=== PATIENT | male | born 1980 | race Caucasian/White ===

== ENCOUNTER 2017-07-16 12:37 | Emergency (ER) | payer SELFPAY ==
--- NOTE | 2017-07-16 13:02 | EDPHYS ---
Physician Documentation [facility] Name: Rufino Pineda Age: 36 yrs Sex: Male : 1980 Arrival Date: 07/16/2017 Time: 12:41 Bed 9 Private MD: ED Physician Marito Álvarez HPI: 07/16 12:57 This 36 yrs old Male presents to ER via Ambulatory with complaints of jr8 Toothache. 12:57 The patient presents with pain, redness, swelling. The problem is located in the right jr8 jaw. Onset: The symptoms/episode began/occurred acutely, yesterday. Duration: The symptoms are continuous. Modifying factors: The symptoms are alleviated by nothing, the symptoms are aggravated by air, chewing, hot fluids. Associated signs and symptoms: The patient has no apparent associated signs or symptoms. Severity of symptoms: At their worst the symptoms were moderate, in the emergency department the symptoms are unchanged. The patient has not experienced similar symptoms in the past. The patient has not recently seen a physician. Historical: - Allergies: 12:45 No Known Allergies; hb - Home Meds: 12:45 None [Active]; hb - PMHx: 12:45 None; hb - PSHx: 12:45 None; hb - Immunization history:: Adult Immunizations up to date. - Social history:: Smoking status: Patient/guardian denies using tobacco. ROS: 12:57 Eyes: Negative for injury, pain, redness, and discharge, Neck: Negative for injury, jr8 pain, and swelling, Cardiovascular: Negative for chest pain, palpitations, and edema, Respiratory: Negative for shortness of breath, cough, wheezing, and pleuritic chest pain, Abdomen/GI: Negative for abdominal pain, nausea, vomiting, diarrhea, and constipation, Back: Negative for injury and pain, MS/Extremity: Negative for injury and deformity, Skin: Negative for injury, rash, and discoloration, Neuro: Negative for headache, weakness, numbness, tingling, and seizure. 12:57 ENT: Positive for dental pain, Gum pain Exam: 12:57 Head/Face: Normocephalic, atraumatic. Eyes: Pupils equal round and reactive to light, jr8 extra-ocular motions intact. Lids and lashes normal. Conjunctiva and sclera are non-icteric and not injected. Cornea within normal limits. Periorbital areas with no swelling, redness, or edema. Neck: Trachea midline, no thyromegaly or masses palpated, and no cervical lymphadenopathy. Supple, full range of motion without nuchal rigidity, or vertebral point tenderness. No Meningismus. Cardiovascular: Regular rate and rhythm with a normal S1 and S2. No gallops, murmurs, or rubs. Normal PMI, no JVD. No pulse deficits. Respiratory: Lungs have equal breath sounds bilaterally, clear to auscultation and percussion. No rales, rhonchi or wheezes noted. No increased work of breathing, no retractions or nasal flaring. Skin: Warm, dry with normal turgor. Normal color with no rashes, no lesions, and no evidence of cellulitis. MS/ Extremity: Pulses equal, no cyanosis. Neurovascular intact. Full, normal range of motion. Neuro: Awake and alert, GCS 15, oriented to person, place, time, and situation. Cranial nerves II-XII grossly intact. Motor strength 5/5 in all extremities. Sensory grossly intact. Cerebellar exam normal. Normal gait. 12:57 ENT: External ear(s): are unremarkable, Ear canal(s): are normal, clear, TM's: are normal, no evidence of bulging, no dullness, no erythema, no fluid levels, no hemotympanum, no rupture, normal bony landmarks, normal mobility, Nose: External nose: no obvious acute abnormality, Nasal septum: is midline, Nasal mucosa: moist, Turbinates: are normal, Mouth: Lips: moist, Oral mucosa: pink and intact, moist, Gums: pink, Tongue: is moist, Posterior pharynx: Airway: patent, Uvula: midline, non-edematous, no erythema, swelling, is not appreciated, erythema, is not appreciated, Dental exam: dental caries, that is mild, specifically in the lower right second bicuspid (#29) and lower right first molar (#30), gum swelling, that is mild, specifically in the lower right second bicuspid (#29) and lower right first molar (#30), pain, that is moderate, specifically in the lower right second bicuspid (#29) and lower right first molar (#30). Vital Signs: 12:45 BP 141 / 96; Pulse 54; Resp 16; Temp 97.8; Pulse Ox 100% ; Weight 97.52 kg; Height 5 hb ft. 11 in. (180.34 cm); Pain 10/10; 12:45 Body Mass Index 29.99 (97.52 kg, 180.34 cm) hb MDM: 12:50 Patient medically screened. jr8 12:57 Data reviewed: vital signs, nurses notes, and as a result, I will discharge patient. jr8 Data interpreted: Pulse oximetry: on room air is 100 %. Interpretation: normal. Counseling: I had a detailed discussion with the patient and/or guardian regarding: the historical points, exam findings, and any diagnostic results supporting the discharge/admit diagnosis, the need for outpatient follow up, a dentist, to return to the emergency department if symptoms worsen or persist or if there are any questions or concerns that arise at home. Administered Medications: 13:10 Drug: Demerol 50 mg Route: IM; Site: right deltoid; 13:10 Drug: Zofran 4 mg Route: PO; Disposition: 18:57 Co-signature as Attending Physician, Marito Álvarez MD. Disposition: 07/16/17 13:01 Discharged to Home. Impression: Pulpitis. - Condition is Stable. - Discharge Instructions: Dental Pain, Root Canal Treatment. - Prescriptions for Amoxicillin 875 mg Oral Tablet - take 1 tablet by ORAL route every 12 hours for 10 days; 20 tablet. Ibuprofen 800 mg Oral Tablet - take 1 tablet by ORAL route every 12 hours As needed take with food; 20 tablet. Tylenol- Codeine #3 300-30 mg Oral Tablet - take 2 tablet by ORAL route every 6 hours As needed; 30 tablet. - Medication Reconciliation Form, Thank You Letter, Antibiotic Education, Prescription Opioid Use form. - Follow up: Private Physician; When: 1 - 2 days; Reason: Recheck today's complaints, Continuance of care, Re-evaluation by your physician. - Problem is new. - Symptoms have improved. Signatures: Carolina Ward, RN RN Ramiro Miner PA PA jr8 Cheryl Olsen RN RN Marito Álvarez MD MD
--- NOTE | 2017-07-16 13:02 | ER ---
Nurse's Notes [facility] Name: Rufino Pineda Age: 36 yrs Sex: Male : 1980 Arrival Date: 07/16/2017 Time: 12:41 Bed 9 Private MD: Diagnosis: Pulpitis Presentation: 07/16 12:43 Presenting complaint: Patient states: Right bottom molar pain x 1 day. Transition of hb care: patient was not received from another setting of care. Onset of symptoms was July 16, 2017. Initial Sepsis Screen: Does the patient meet any 2 criteria? No. Patient's initial sepsis screen is negative. Does the patient have a suspected source of infection? No. Patient's initial sepsis screen is negative. Care prior to arrival: Medication(s) given: PCN at 0800. 12:43 Method Of Arrival: Ambulatory hb 12:43 Acuity: MARIAM 4 hb Historical: - Allergies: 12:45 No Known Allergies; hb - Home Meds: 12:45 None [Active]; hb - PMHx: 12:45 None; hb - PSHx: 12:45 None; hb - Immunization history:: Adult Immunizations up to date. - Social history:: Smoking status: Patient/guardian denies using tobacco. Screenin:56 Abuse screen: Denies threats or abuse. Denies injuries from another. Nutritional iw screening: No deficits noted. Tuberculosis screening: No symptoms or risk factors identified. Fall Risk None identified. Assessment: 12:55 General: Appears in no apparent distress. Behavior is calm, cooperative. Pain: iw Complains of pain in right cheek and right jaw Pain. Neuro: Level of Consciousness is awake, alert, obeys commands, Oriented to person, place, time, situation, Appropriate for age Moves all extremities. Full function. Cardiovascular: Patient's skin is warm and dry. Respiratory: Airway is patent Respiratory effort is even, unlabored. EENT: Reports pain in mouth. Derm: Skin is pink, warm \T\ dry. normal. Musculoskeletal: Range of motion: intact in all extremities. 13:17 Reassessment: Patient appears in no apparent distress at this time. Patient and/or iw family updated on plan of care and expected duration. Pain level reassessed. Patient is alert, oriented x 3, equal unlabored respirations, skin warm/dry/pink. Vital Signs: 12:45 BP 141 / 96; Pulse 54; Resp 16; Temp 97.8; Pulse Ox 100% ; Weight 97.52 kg; Height 5 hb ft. 11 in. (180.34 cm); Pain 10/10; 12:45 Body Mass Index 29.99 (97.52 kg, 180.34 cm) hb ED Course: 12:41 Patient arrived in ED. mr 12:45 Triage completed. hb 12:45 Arm band placed on left wrist. hb 12:50 Ramiro Miner PA is PHCP. jr8 12:50 Marito Álvarez MD is Attending Physician. jr8 12:55 Carolina Ward, RN is Primary Nurse. iw 12:56 No provider procedures requiring assistance completed. iw 13:17 Patient has correct armband on for positive identification. iw 13:17 Patient did not have IV access during this emergency room visit. iw Administered Medications: 13:10 Drug: Demerol 50 mg Route: IM; Site: right deltoid; iw 13:10 Drug: Zofran 4 mg Route: PO; iw Outcome: 13:01 Discharge ordered by . jr8 13:17 Discharged to home ambulatory, with family. iw 13:17 Condition: good 13:17 Discharge instructions given to patient, Instructed on discharge instructions, follow up and referral plans. medication usage, Demonstrated understanding of instructions, follow-up care, medications, Prescriptions given X 3. 13:18 Patient left the ED. iw Signatures: Suhda Perez mr Carolina Ward, RN RN Ramiro Miner PA PA [facility] Cheryl Olsen RN RN
[2017-07-16] MEDS ORDERED: MEPERIDINE HCL 50 MG/ML AMP ONE (13:03)
[2017-07-16] MEDS ORDERED: ONDANSETRON 4 MG (ODT) TAB ONE (13:03)
== END 2017-07-16 13:18 | disposition home or self-care (01) ==
LOC: ER 12:37
DX: K04.01 Reversible pulpitis (principal)
CPT/HCPCS: 96372; 99283; J2175

== ENCOUNTER 2020-08-04 10:30 | Inpatient (IN) | payer SELFPAY ==
[2020-08-04] MEDS ORDERED: ONDANSETRON 4 MG/2 ML VIAL ONE (12:40)
[2020-08-04] MEDS ORDERED: MORPHINE 4 MG/ML SYR ONE (12:40)
[2020-08-04] MEDS ORDERED: NA CHLORIDE 0.9% 0 ML ONE (12:40)
[2020-08-04] MEDS ORDERED: FAMOTIDINE 20 MG/2 ML VIAL IV ONE (12:41)
[2020-08-04] MEDS ORDERED: NA CHLORIDE 0.9% 1,000 ML ONE (12:42)
[2020-08-04 12:46] LABS: Absolute Lymphocytes (CBC) 1.5 K/uL (0.7-4.9); Basophils % 0.5 % (0-1.3); Hematocrit 47.4 % (39.6-49.0); Lymphocytes % 8.8 % (15.3-44.8); MPV 7.3 fL (7.6-11.3); RBC Red Blood Cell Count 5.32 M/uL (4.33-5.43)
[2020-08-04 12:59] LABS: ALT/SGPT 25 U/L (12-78); AST/SGOT 16 U/L (15-37); Albumin 5.1 g/dL (3.4-5.0); Alkaline Phosphatase 116 U/L (45-117); BUN Blood Urea Nitrogen 12 mg/dL (7-18); Bicarbonate 23 mmol/L (21-32); Bilirubin Direct 0.1 mg/dL (0-0.2); Bilirubin Total 0.7 mg/dL (0.2-1.0); Glucose Level 113 mg/dL (74-106); Lipase 76 U/L (73-393); Magnesium 2.3 mg/dL (1.8-2.4); Potassium 3.8 mmol/L (3.5-5.1); Sodium Level 138 mmol/L (136-145)
[2020-08-04 13:07] LABS: Blood Morphology Comment NOT SEEN (NOT SEEN); Platelet Estimate ADEQ; White Blood Cell Scan OK (OK)
--- NOTE | 2020-08-04 13:08 | RAD REPORT ---
EXAM DESCRIPTION: CT - Abdomen Pelvis W Contrast - 08/04/2020 12:46 pm CLINICAL HISTORY: Abdominal pain COMPARISON: none. TECHNIQUE: Computed axial tomography of the abdomen pelvis was obtained. 100 cc Isovue-300 was admin istered intravenously. Oral contrast was not requested which limits evaluation of bowel. All CT scans are performed using dose optimization technique as appropriate and may include automated exposure control or mA/KV adjustment according to patient size. FINDINGS: Calcified granuloma left lower lobe The liver, spleen, pancreas, adrenal and kidneys appear unremarkable. There is no evidence of diverticulitis. Normal appendix. Cholelithiasis. There may be calcification of gallbladder wall. In addition there appears to be calci fication in the region of the cystic duct and common hepatic duct. Small inguinal hernias IMPRESSION: Cholelithiasis. There may be calcification of gallbladder wall. In addition there appear s to be stones in the region of the cystic duct .
[2020-08-04] MEDS ORDERED: HYDROMORPHONE HCL 1 MG/ML INJ ONE (13:46)
[2020-08-04] MEDS ORDERED: CEFTRIAXONE/SWI 1gm 1 GM/10 ML SYR ONE (13:54)
--- NOTE | 2020-08-04 14:53 | RAD REPORT ---
EXAM DESCRIPTION: US - Abdomen Exam Limited - 08/04/2020 2:43 pm CLINICAL HISTORY: Abdominal pain. COMPARISON: CT abdomen Aug 04 2020 FINDINGS: The gallbladder is distended. A small stone is seen within the region of gallbladder neck The gallbladder wall is not thickened. Common bile duct measures 6 millimeters IMPRESSION: Cholelithiasis Gallbladder distention
--- NOTE | 2020-08-04 15:08 | ER ---
Nurse's Notes [facility] Name: Rufino Pineda Age: 39 yrs Sex: Male : 1980 Arrival Date: 08/04/2020 Time: 10:35 Bed 26 Private MD: Diagnosis: Cholecystitis Presentation: 08/04 11:04 Chief complaint: Patient states: Epigastric pain started last night, now whole abdomen jl7 is hurting, N/V/D since last night. Coronavirus screen: Client denies travel out of the [place] in the last 14 days. Ebola Screen: No symptoms or risks identified at this time. Initial Sepsis Screen: Does the patient meet any 2 criteria? No. Patient's initial sepsis screen is negative. Does the patient have a suspected source of infection? No. Patient's initial sepsis screen is negative. Risk Assessment: Do you want to hurt yourself or someone else? Patient reports no desire to harm self or others. Onset of symptoms was August 03, 2020. 11:04 Method Of Arrival: EMS: [facility] 11:04 Acuity: MARIAM 3 jl7 Triage Assessment: 11:07 General: Appears in no apparent distress. uncomfortable, ill, Behavior is cooperative, jl7 anxious, crying, restless. Pain: Complains of pain in abdomen diffusely Pain currently is 10 out of 10 on a pain scale. GI: Abdomen is non-distended. Historical: - Allergies: 11:07 No Known Allergies; jl7 - Home Meds: 11:07 None [Active]; jl7 - PMHx: 11:07 None; jl7 - PSHx: 11:07 None; jl7 - Immunization history:: Adult Immunizations unknown. - Social history:: Smoking status: Patient reports the use of cigarette tobacco products, smokes one-half pack cigarettes per day. Screenin:12 Abuse screen: Denies threats or abuse. Denies injuries from another. Nutritional ld1 screening: No deficits noted. Tuberculosis screening: No symptoms or risk factors identified. Fall Risk None identified. Assessment: 12:12 General: Appears in no apparent distress. uncomfortable, Behavior is calm, cooperative, ld1 appropriate for age. Pain: Complains of pain in abdomen Pain currently is 10 out of 10 on a pain scale. Quality of pain is described as burning, throbbing, Pain began 1 day ago. Is continuous. Neuro: Level of Consciousness is awake, alert, obeys commands, Oriented to person, place, time, situation. Cardiovascular: Capillary refill < 3 seconds Patient's skin is warm and dry. Respiratory: Airway is patent Respiratory effort is even, unlabored, Respiratory pattern is regular, symmetrical. GI: Abdomen is flat, non-distended, Pt is actively vomiting Bright pink colored emesis, states he has been drinking pepto bismol. Bowel sounds present X 4 quads. Abd is soft Abdomen is tender to palpation X 4 quads. : No signs and/or symptoms were reported regarding the genitourinary system. EENT: No signs and/or symptoms were reported regarding the EENT system. Derm: No signs and/or symptoms reported regarding the dermatologic system. Musculoskeletal: No signs and/or symptoms reported regarding the musculoskeletal system. 13:10 Reassessment: No changes from previously documented assessment. Patient is alert, ld1 oriented x 3, equal unlabored respirations, skin warm/dry/pink. Pt c/o unrelieved ABD pain level 12/27. Notified ERP. See MAR for orders. 14:15 Reassessment: Patient and/or family updated on plan of care and expected duration. Pain ld1 level reassessed. Patient is alert, oriented x 3, equal unlabored respirations, skin warm/dry/pink. Pt states he is feeling much better. Will continue to monitor. Denies concerns at this time. Resting at bedside with sister in room. 15:10 Reassessment: No changes from previously documented assessment. Patient and/or family ld1 updated on plan of care and expected duration. Pain level reassessed. Patient is alert, oriented x 3, equal unlabored respirations, skin warm/dry/pink. ERP at bedside discussing POC. Patient states feeling better. 16:30 Reassessment: Patient appears in no apparent distress at this time. No changes from ld1 previously documented assessment. Patient and/or family updated on plan of care and expected duration. Pain level reassessed. Patient is alert, oriented x 3, equal unlabored respirations, skin warm/dry/pink. 18:51 Reassessment: Patient appears in no apparent distress at this time. No changes from ld1 previously documented assessment. Patient and/or family updated on plan of care and expected duration. Pain level reassessed. Patient is alert, oriented x 3, equal unlabored respirations, skin warm/dry/pink. Talking on phone with friend at bedside. Denies concerns at this time. 20:45 Reassessment: Patient appears in no apparent distress at this time. Patient and/or wh family updated on plan of care and expected duration. Pain level reassessed. Patient is alert, oriented x 3, equal unlabored respirations, skin warm/dry/pink. Vital Signs: 11:04 BP 126 / 84; Pulse 72; Resp 21; Temp 98.2; Pulse Ox 100% ; Weight 88.45 kg; Height 5 jl7 ft. 11 in. (180.34 cm); Pain 10/10; 12:12 BP 122 / 82; Pulse 76; Resp 18; Pulse Ox 100% on R/A; Pain 10/10; ld1 12:58 BP 124 / 78; Pulse 74; Resp 18; Pulse Ox 100% on R/A; Pain 10/10; ld1 14:06 BP 118 / 76; Pulse 72; Resp 18; Pulse Ox 100% on R/A; Pain 7/10; ld1 15:10 BP 122 / 82; Pulse 80; Resp 18; Pulse Ox 100% on R/A; ld1 16:30 BP 128 / 86; Pulse 76; Resp 18; Pulse Ox 100% ; ld1 18:51 BP 118 / 72; Pulse 76; Resp 18; Pulse Ox 100% on R/A; Pain 0/10; ld1 20:45 BP 114 / 77; Pulse 74; Resp 18; Pulse Ox 100% on R/A; wh 11:04 Body Mass Index 27.20 (88.45 kg, 180.34 cm) jl7 ED Course: 10:35 Patient arrived in ED. mr 11:06 Triage completed. jl7 11:07 Arm band placed on right wrist. jl7 12:12 Martha Elizondo, CHRISTOPHER is Primary Nurse. ld1 12:12 Patient has correct armband on for positive identification. Call light in reach. Pulse ld1 ox on. NIBP on. Door closed. Noise minimized. 12:12 No provider procedures requiring assistance completed. ld1 12:14 Bruno Moffett PA is PHCP. cp 12:14 Nicholas Lynn MD is Attending Physician. cp 12:30 Inserted saline lock: 22 gauge in right antecubital area, using aseptic technique. ld1 Blood collected. 12:47 Magnesium Sent. sv 12:47 UDS Sent. sv 12:47 Lipase Sent. sv 12:47 Hepatic Function Sent. sv 12:47 CBC with Diff Sent. sv 12:47 Basic Metabolic Panel Sent. sv 15:03 attempted to transfer to [facility], spoke with OREN, was informed that they had bd no floor beds at the main [place], [facility] or [facility]. 15:[address] [facility]. bd 15:[address] [facility] or [place],per Kim. bd 15:50 initiated transfer to [facility]. bd 16:43 pt denied at [facility] due to no beds at this time. bd 17:[address] [facility] declined pt, due to not having the ability to do a ercp,per zita. bd 17:25 COVID-19 : Document "Date of Symptom Onset" if Symptomatic. Sent. ld1 17:26 CORONAVIRUS Sent. ld1 18:54 initiated transfer to [facility]. bd 19:05 pt denied at [facility]. initiated transfer [facility]. bd 19:30 Marcin Boyer MD is Hospitalizing Provider. cp 19:54 Primary Nurse role handed off by Martha Elizondo RN mw2 20:45 Patient admitted, IV remains in place. Administered Medications: 12:42 Drug: NS 0.9% 1000 ml Route: IV; Rate: 1 bolus; Site: right antecubital; ld1 20:46 Follow up: Response: No adverse reaction; IV Status: Completed infusion 12:42 Drug: Zofran (Ondansetron) 4 mg Route: IVP; Site: right antecubital; ld1 13:00 Follow up: Response: No adverse reaction vg1 12:42 Drug: Pepcid (famotidine) 20 mg Route: IVP; Site: right antecubital; ld1 13:00 Follow up: Response: No adverse reaction vg1 12:42 Drug: morphine 4 mg Route: IVP; Site: right antecubital; ld1 12:50 Follow up: Response: No adverse reaction vg1 13:28 Drug: Dilaudid (HYDROmorphone) 1 mg Route: IVP; Site: right antecubital; ld1 14:03 Follow up: Response: No adverse reaction ld1 13:28 Drug: Rocephin (cefTRIAXone) 1 grams Route: IV; Rate: bolus; Site: right antecubital; ld1 13:35 Follow up: Response: No adverse reaction; IV Status: Completed infusion ld1 19:09 Drug: Zosyn (piperacillin-tazobactam) 3.375 grams Route: IVPB; Infused Over: 60 mins; ld1 Site: right antecubital; 20:46 Follow up: Response: No adverse reaction; IV Status: Infusion continued upon admission Outcome: 15:08 ER care complete, transfer ordered by MD. cp 19:31 Decision to Hospitalize by Provider. cp 20:45 Admitted to Tele accompanied by nurse, via wheelchair, room 410, with chart, Report called to Narcisa Singer RN 20:45 Condition: stable 20:45 Instructed on the need for admit. 21:48 Patient left the ED. Signatures: Shirley Livingston Stephanie, RN RN Angeles Perez Corey, PA PA cp Leal, Jahala, RN RN jl7 Quang Chan RN CHRISTOPHER Sharon Cerrato mw2 Bhavna Ashley RN RN vg1 Martha Elizondo, RN RN ld1 Corrections: (The following items were deleted from the chart) 13:54 13:28 Dilaudid (HYDROmorphone) 1 mg IVP in right antecubital vg1 vg1 13:54 13:42 Rocephin (cefTRIAXone) 1 grams IV at bolus in right antecubital vg1 vg1 13:54 13:42 Response: No adverse reaction vg1 vg1 14:06 12:58 BP 118 / 76; Pulse 72bpm; Resp 18bpm; Pulse Ox 100% RA; Pain 7/10; ld1 ld1
--- NOTE | 2020-08-04 15:08 | EDPHYS ---
Physician Documentation [facility] Name: Rufino Pineda Age: 39 yrs Sex: Male : 1980 Arrival Date: 08/04/2020 Time: 10:35 Bed 26 Private MD: ED Physician Nicholas Lynn HPI: 08/04 12:25 This 39 yrs old Male presents to ER via EMS with complaints of Abdominal Pain.cp 12:25 The patient presents with abdominal pain that is diffuse, started with epigastric pain cp last night. 12:25 The symptoms do not radiate. Associated signs and symptoms: Pertinent positives: nausea cp and vomiting, Pertinent negatives: chest pain, constipation, diarrhea, fever. The symptoms are described as constant. Severity of pain: in the emergency department the pain is unchanged despite home interventions. Historical: - Allergies: 11:07 No Known Allergies; jl7 - Home Meds: 11:07 None [Active]; jl7 - PMHx: 11:07 None; jl7 - PSHx: 11:07 None; jl7 - Immunization history:: Adult Immunizations unknown. - Social history:: Smoking status: Patient reports the use of cigarette tobacco products, smokes one-half pack cigarettes per day. ROS: 12:30 Constitutional: Negative for body aches, chills, fever, poor PO intake. cp 12:30 Eyes: Negative for injury, pain, redness, and discharge. cp 12:30 ENT: Negative for ear pain, sore throat, difficulty swallowing, difficulty handling secretions. 12:30 Cardiovascular: Negative for chest pain, palpitations. 12:30 Respiratory: Negative for cough, shortness of breath, wheezing. 12:30 Abdomen/GI: Positive for abdominal pain, nausea and vomiting, Negative for diarrhea, constipation, hematemesis. 12:30 : Negative for urinary symptoms, testicular pain 12:30 Neuro: Negative for altered mental status, headache, weakness. 12:30 All other systems are negative. Exam: 12:35 Constitutional: The patient appears in no acute distress, alert, awake, cp non-diaphoretic, non-toxic, well developed, well nourished, uncomfortable. 12:35 Head/Face: Normocephalic, atraumatic. cp 12:35 Eyes: Periorbital structures: appear normal, Conjunctiva: normal, no exudate, no injection, Sclera: no appreciated abnormality, Lids and lashes: appear normal, bilaterally. 12:35 ENT: External ear(s): are unremarkable, Nose: is normal, Mouth: Lips: moist, Oral mucosa: moist, Posterior pharynx: Airway: no evidence of obstruction, patent. 12:35 Chest/axilla: Inspection: normal, Palpation: is normal, no crepitus, no tenderness. 12:35 Cardiovascular: Rate: normal, Rhythm: regular. 12:35 Respiratory: the patient does not display signs of respiratory distress, Respirations: normal, no use of accessory muscles, no retractions, labored breathing, is not present, Breath sounds: are clear throughout, no decreased breath sounds. 12:35 Abdomen/GI: Inspection: abdomen appears normal, Bowel sounds: active, all quadrants, Palpation: soft, in all quadrants, severe abdominal tenderness, in the epigastric area and right upper quadrant, voluntary guarding, is elicited in the epigastric area and right upper quadrant. Vital Signs: 11:04 BP 126 / 84; Pulse 72; Resp 21; Temp 98.2; Pulse Ox 100% ; Weight 88.45 kg; Height 5 jl7 ft. 11 in. (180.34 cm); Pain 10/10; 12:12 BP 122 / 82; Pulse 76; Resp 18; Pulse Ox 100% on R/A; Pain 10/10; ld1 12:58 BP 124 / 78; Pulse 74; Resp 18; Pulse Ox 100% on R/A; Pain 10/10; ld1 14:06 BP 118 / 76; Pulse 72; Resp 18; Pulse Ox 100% on R/A; Pain 7/10; ld1 15:10 BP 122 / 82; Pulse 80; Resp 18; Pulse Ox 100% on R/A; ld1 16:30 BP 128 / 86; Pulse 76; Resp 18; Pulse Ox 100% ; ld1 18:51 BP 118 / 72; Pulse 76; Resp 18; Pulse Ox 100% on R/A; Pain 0/10; ld1 20:45 BP 114 / 77; Pulse 74; Resp 18; Pulse Ox 100% on R/A; wh 11:04 Body Mass Index 27.20 (88.45 kg, 180.34 cm) 7 MDM: 12:22 Patient medically screened. cp 12:45 Differential diagnosis: appendicitis, cholecystitis, Cholelithiasis, gastritis, cp pancreatitis, Peptic Ulcer Disease, Perf. Duodenal Ulcer, Perf. Gastric Ulcer. 18:55 Data reviewed: vital signs, nurses notes, lab test result(s), radiologic studies, CT cp scan, MRI, ultrasound, I have discussed the patient's presentation/case with the attending Emergency Department Physician; and as a result, I will transfer patient. 19:25 Physician consultation: Marcin Boyer MD was called at 19:25, was contacted at 19:25, regarding admission, to the medical/surgical unit. patient's condition. 08/04 12:17 Order name: Basic Metabolic Panel cp 08/04 12:17 Order name: CBC with Diff cp 08/04 12:17 Order name: Hepatic Function cp 08/04 12:17 Order name: Lipase cp 08/04 12:17 Order name: UDS cp 08/04 12:17 Order name: Magnesium 08/04 12:47 Order name: CBC with Automated Diff; Complete Time: 13:25 EDMS 08/04 13:25 Interpretation: Normal except: WBC 17.00; PLT 416; MPV 7.3; MATI% 86.8; LYM% 8.8; NEUT A cp 14.8. 08/04 12:59 Order name: Basic Metabolic Panel; Complete Time: 13:25 EDMS 08/04 14:31 Interpretation: Normal except: GLUC 113; CA 10.3. cp 08/04 12:59 Order name: Liver (Hepatic) Function; Complete Time: 13:25 EDMS 08/04 12:59 Order name: Magnesium; Complete Time: 13:25 EDMS 08/04 12:59 Order name: Lipase; Complete Time: 13:25 EDMS 08/04 15:23 Order name: Urine Dipstick-Ancillary; Complete Time: 16:43 EDMS 08/04 15:47 Order name: Urine Drug Screen; Complete Time: 16:43 EDMS 08/04 12:17 Order name: IV Saline Lock; Complete Time: 12:43 08/04 12:17 Order name: CT Abd/Pelvis - IV Contrast Only 08/04 13:09 Order name: CT; Complete Time: 13:25 EDMS 08/04 13:27 Order name: US Abdomen Limited cp 08/04 14:53 Order name: US; Complete Time: 14:59 EDMS 08/04 16:08 Order name: COVID-19 : Document "Date of Symptom Onset" if Symptomatic. bd 08/04 16:28 Order name: [facility] 08/04 18:10 Order name: SARS-COV-2 RT PCR; Complete Time: 18:52 EDSC 08/04 18:44 Order name: MRI; Complete Time: 18:52 EDSC 08/04 12:17 Order name: Labs collected and sent; Complete Time: 12:43 cp 08/04 12:17 Order name: Urine Dipstick-Ancillary (obtain specimen); Complete Time: 15:34 cp 08/04 13:27 Order name: NPO; Complete Time: 13:30 cp Administered Medications: 12:42 Drug: NS 0.9% 1000 ml Route: IV; Rate: 1 bolus; Site: right antecubital; ld1 20:46 Follow up: Response: No adverse reaction; IV Status: Completed infusion 12:42 Drug: Zofran (Ondansetron) 4 mg Route: IVP; Site: right antecubital; ld1 13:00 Follow up: Response: No adverse reaction vg1 12:42 Drug: Pepcid (famotidine) 20 mg Route: IVP; Site: right antecubital; ld1 13:00 Follow up: Response: No adverse reaction vg1 12:42 Drug: morphine 4 mg Route: IVP; Site: right antecubital; ld1 12:50 Follow up: Response: No adverse reaction vg1 13:28 Drug: Dilaudid (HYDROmorphone) 1 mg Route: IVP; Site: right antecubital; ld1 14:03 Follow up: Response: No adverse reaction ld1 13:28 Drug: Rocephin (cefTRIAXone) 1 grams Route: IV; Rate: bolus; Site: right antecubital; ld1 13:35 Follow up: Response: No adverse reaction; IV Status: Completed infusion ld1 19:09 Drug: Zosyn (piperacillin-tazobactam) 3.375 grams Route: IVPB; Infused Over: 60 mins; ld1 Site: right antecubital; 20:46 Follow up: Response: No adverse reaction; IV Status: Infusion continued upon admission Disposition: 08/05 07:48 Co-signature as Attending Physician, Nicholas Lynn MD. rn Disposition: 08/04/20 19:31 Hospitalization ordered by Marcin Boyer for Inpatient Admission. Preliminary diagnosis is Cholecystitis. - Bed requested for Telemetry/MedSurg (Inpatient). - Status is Inpatient Admission. - Condition is Stable. - Problem is new. - Symptoms have improved. Signatures: Dispatcher [employer] EDSC Nicholas Lynn MD MD rn Page, Corey, SEE PA cp Amy Ashley, RN RN Noreen Gamez, RN RN jl7 Quang Chan RN RN Bhavna Ashley, RN RN vg1 Martha Elizondo, RN RN ld1 Corrections: (The following items were deleted from the chart) 08/04 14:12 12:25 The patient presents with abdominal pain in the upper abdomen, cp cp 14:31 14:30 Normal except: GLUC 113. cp cp 15:35 15:14 CORONAVIRUS+MR.LAB.BRZ ordered. EDSC EDSC 19:30 15:08 08/04/2020 15:[address] [facility]. cp Diagnosis is Choledocholithiasis. Reason for transfer: Higher level of care. Accepting physician is Doctor. Condition is Stable. Problem is new. Symptoms have improved. cp 20:15 19:31 Hospitalization Ordered by Marcin Boyer MD for Inpatient Admission. Preliminary cg diagnosis is Cholecystitis. Bed requested for Telemetry/MedSurg (Inpatient). Status is Inpatient Admission. Condition is Stable. Problem is new. Symptoms have improved. cp 21:48 20:15 08/04/2020 19:31 Hospitalization Ordered by Marcin Boyer MD for Inpatient Admission. Preliminary diagnosis is Cholecystitis. Bed requested for Telemetry/MedSurg (Inpatient). Status is Inpatient Admission. Condition is Stable. Problem is new. Symptoms have improved. cg
[2020-08-04 15:23] LABS: Urine Blood Negative (Negative); Urine Glucose Negative (Negative); Urine Protein Negative (Negative); Urine Specific Gravity 1.015 (1.005-1.030); Urine pH 8.5 (5.0-7.0)
[2020-08-04 15:47] LABS: Barbiturates NEGATIVE (NEGATIVE); Benzodiazepines NEGATIVE (NEGATIVE); Cocaine NEGATIVE (NEGATIVE); METHAMPHETAM POSITIVE (NEGATIVE); Methadone NEGATIVE (NEGATIVE); Opiates POSITIVE (NEGATIVE); Phencyclidine NEGATIVE (NEGATIVE); THC Cannibis POSITIVE (NEGATIVE)
--- NOTE | 2020-08-04 18:43 | RAD REPORT ---
EXAM DESCRIPTION: MRICholangiogram08/04/2020 6:18 pm CLINICAL HISTORY: Abdominal pain COMPARISON: August 04, 2020 cat scan and ultrasound TECHNIQUE: Magnetic resonance cholangiogram was performed.3D MIP reconstruction performed FINDINGS: Since the prior exams on today's date there has been development of gallbladder wall thick ening. Stone within the cystic duct suspected. Mild dilatation of the common hepatic duct. Common bile duct normal caliber. Pancreatic duct is normal caliber IMPRESSION: Development of gallbladder wall thickening probably cholecystitis Stone within the cystic duct suspected
[2020-08-04] MEDS ORDERED: PIPER/TAZO/NS 3.375gm 3.375 GM/100 ML BAG ONE (19:16)
[2020-08-04] MEDS ORDERED: MORPHINE 4 MG/ML SYR IV PRN (19:39)
[2020-08-04] MEDS ORDERED: ONDANSETRON 4 MG/2 ML VIAL IV PRN (19:39)
[2020-08-04 22:12] VITALS: BMI 29.0
[2020-08-05] MEDS ORDERED: PIPER/TAZO/NS 3.375gm 3.375 GM/100 ML BAG IVPB SCH
[2020-08-05] MEDS ORDERED: PIPER/TAZO/NS 3.375gm 3.375 GM/100 ML BAG IV SCH ×2 (01:00→09:00)
[2020-08-05] MEDS ORDERED: PIPER/TAZO/NS 3.375gm 3.375 GM/100 ML BAG ONE (01:04)
[2020-08-05 03:50] LABS: Absolute Lymphocytes (CBC) 4.3 K/uL (0.7-4.9); Basophils % 0.5 % (0-1.3); Hematocrit 39.7 % (39.6-49.0); Lymphocytes % 35.3 % (15.3-44.8); MPV 7.6 fL (7.6-11.3); RBC Red Blood Cell Count 4.47 M/uL (4.33-5.43)
[2020-08-05 03:56] LABS: ALT/SGPT 18 U/L (12-78); AST/SGOT 10 U/L (15-37); Albumin 3.5 g/dL (3.4-5.0); Alkaline Phosphatase 89 U/L (45-117); BUN Blood Urea Nitrogen 10 mg/dL (7-18); Bicarbonate 28 mmol/L (21-32); Bilirubin Direct 0.2 mg/dL (0-0.2); Bilirubin Total 0.8 mg/dL (0.2-1.0); Glucose Level 85 mg/dL (74-106); Lipase 57 U/L (73-393); Potassium 3.9 mmol/L (3.5-5.1); Protein, Total 6.6 g/dL (6.4-8.2); Sodium Level 141 mmol/L (136-145)
[2020-08-05] MEDS ORDERED: Ringers Lactate 1,000 ML IV ONE (12:04)
[2020-08-05] MEDS ORDERED: MIDAZOLAM HCL 2 MG/2 ML INJ ONE (13:39)
[2020-08-05] MEDS ORDERED: FENTANYL CITR 100 MCG/2 ML ONE (13:39)
[2020-08-05] MEDS ORDERED: propofoL 200 MG/20 ML VIAL IV ONE (13:39)
[2020-08-05] MEDS ORDERED: ROCURONIUM 50 MG/5 ML VIAL IV ONE (13:39)
[2020-08-05] MEDS ORDERED: LIDOCAINE 1% MPF 5 ML VIAL ONE (13:39)
--- NOTE | 2020-08-05 14:36 | P.BOP ---
Preoperative diagnosis: acute cholecystitis, symptomatic cholelithiasis Postoperative diagnosis: same Primary procedure: Laparoscopic cholecystectomy [employer] Manager: Tamie Lancaster (Jacque) Estimated blood loss: <10cc Specimen: gb Findings: as above Anesthesia: General Transferred to: Recovery Room Condition: Good
[2020-08-05] MEDS ORDERED: KETOROLAC 30 MG/ML INJ ONE (14:37)
[2020-08-05] MEDS ORDERED: GLYCOPYRROLATE 0.2 MG/ML SYR ONE (14:37)
[2020-08-05] MEDS ORDERED: ONDANSETRON 4 MG/2 ML VIAL ONE (14:37)
[2020-08-05 14:39] VITALS: O2SAT 100
[2020-08-05] MEDS ORDERED: HYDROCODONE/APAP 5/325 MG TAB PO PRN (14:40)
[2020-08-05] MEDS ORDERED: NEOSTIGMINE 1 MG/ML -5 ML ONE (14:48)
[2020-08-05] MEDS ORDERED: PROMETHAZINE INJ 25 MG/ML AMP ONE (15:15)
[2020-08-05] MEDS ORDERED: HYDROMORPHONE HCL 1 MG/ML INJ ONE (15:20)
--- NOTE | 2020-08-05 15:27 | HP ---
Date of Admission: 08/04/2020 Reason For Service: Acute cholecystitis, intractable right upper quadrant abdominal pain, symptomati c cholelithiasis. History Of Present Illness: This is the case of a 39-year-old patient, who comes to us with epigastr ic right upper quadrant pain associated with nausea, vomiting, diarrhea. He came to the ER overnight . They gave him some hydration and pain medications, did not improve, so they called me for admissio n and cholecystectomy. They also have questionable ultrasound findings of the common bile duct, so t irishy want to do an MRCP too. He denies any dysuria, hematuria, hematochezia, melena. He denies any r ecent traveling out of the country. Denies any family member sick at home. Allergies: NONE. Medications: None. Past Surgical History: Surgeries none. Past Medical History: Medical problems none. Social History: He does not smoke. He does not drink alcohol. Review of Systems: See H and P. Ten points otherwise unremarkable. Physical Examination: General: The patient is awake, alert. HEENT: Pupils are equal and reactive. Anicteric. Neck: Supple. Chest: Clear. Abdomen: Epigastric right upper quadrant tenderness with Ramon sign positive. Breasts: Deferred. Genitalia: Deferred. Rectal: Deferred. Extremities: Good capillary refill. Neuro: Cranial nerves 2 through 12 grossly normal limits. Laboratory Data: WBC count of 17, hemoglobin of 15, platelets of 416. Sodium is 138, chloride is 10 7. UA negative for blood. Total bili of 0.7, AST is 16, ALT of 25, alkaline phosphatase 116. Ultra sound of the gallbladder shows distended gallbladder with gallstones. MRCP shows thickening gallblad dudley wall, cholecystitis, mild dilatation of the common bile duct, but no stones seen even though the first reading like that the stone is on the cystic duct, not in the common bile duct. Assessment: A 39-year-old patient with acute cholecystitis, symptomatic cholelithiasis, right upper quadrant intractable abdominal pain. The patient explained the options of laparoscopic possible open cholecystectomy with benefits, alternatives, and risks including, but not limited to infection, blee ding, damage to adjacent structures, anesthesia complication, cholelithiasis, bile leak, pancreatitis , [place], and even . He also understands this may not relieve any symptoms. He might need more santos n one surgical intervention. He understood, signed a consent. He wants surgery done during this adm ission. OR was called. MARBELLA/JEFFERSON Voice ID: [id number]
[2020-08-05 16:36] VITALS: BP 117/81; TEMP 97
--- NOTE | 2020-08-05 18:54 | OP ---
Date of Procedure: 08/05/2020 Surgeon: Marcin Boyer MD Electrical Sign Wirer: ILIA Cervantes. Preoperative Diagnoses: Right upper quadrant intractable abdominal pain, acute cholecystitis, sympto matic cholelithiasis. Postoperative Diagnoses: Right upper quadrant intractable abdominal pain, acute cholecystitis, sympt omatic cholelithiasis. Procedure: Laparoscopic cholecystectomy. Estimated Blood Loss: Less than 10 mL. Specimen: Gallbladder. Anesthesia: General plus local. Finding: As above. Indication: This is the case of a male, who comes to us with above diagnosis. Fully explained the b enefits, alternatives, and risks of laparoscopic possible open cholecystectomy, which include, but no t limited to infection, bleeding, damage to adjacent structures, anesthesia complication, choledochol ithiasis, bile leak, pancreatitis, [place], and even . He also understands this may not relieve any symptoms. He might need more than one surgical intervention. He understood, signed a consent. Procedure In Detail: The patient was brought to the operating room, placed in supine position. Anes thesia was done without complication. Abdominal area was prepped and draped in usual sterile fashion . Marcaine 0.5% was injected for local anesthetic followed by sharp incision of skin in the infraumb ilical region. Incision was carried down to fascia, which was opened under direct vision. Peritoneu m was encountered opened under direct vision. Vicryl #1 placed inside the fascia. Harmony trocar was carefully introduced. Pneumoperitoneum was obtained. I placed 3 more trocars, 5 mm each one of the m in the epigastrium and right upper quadrant area, 5 mm each one of them under direct visualization. This allowed me to see an inflamed erythematosus gallbladder. Grasper was placed in the fundus of the gallbladder and another grasper in the infundibulum retracting the gallbladder in the inferolater al fashion, exposing the triangle of Calot and obtaining critical view. Cystic duct and cystic arter y were clearly isolated, freed circumferentially and a connection between those and the gallbladder w ere clearly identified. I proceeded to ligate those by using at least 3 clips proximal, 1 clip dista l, ligation in middle. Same was done with the cystic artery. No bile leak, no bleeding. The gallbl adder was removed from liver using Bovie cauterizer and removed from abdominal cavity using EndoCatch through the umbilical incision. The area was inspected once again. No bile leak, no bleeding. At that moment, I proceeded to remove the trocars under direct vision. Deflated the pneumoperitoneum. Closed the fascia with #1 Vicryl. Irrigated subcutaneous tissue, closed with 3-0 chromic and the ski n in a subcuticular fashion with 3-0 chromic and then the skin rachelle. The patient tolerated the pr ocedure well. Sponge count and instrument counts correct. The patient was sent to recovery in stabl e condition. MARBELLA/CASIMIROL Voice ID: [id number] Report ID: [id number]
--- NOTE | 2020-08-05 18:54 | DS ---
Diagnoses: Acute cholecystitis, symptomatic cholelithiasis, right upper quadrant abdominal pain. Procedure: Laparoscopic cholecystectomy. Plan: If he tolerates diet this afternoon and he wants to go home, he can go home with a condition t hat he cannot do heavy lifting. Follow up in my office in 1 week. Call for appointment at [phone]. Keep area dry for 48 hours, then may shower. Keep Steri-Strips intact. Medications: See orders. MARBELLA/JEFFERSON Voice ID: [id number] Report ID: [id number]
== END 2020-08-05 19:50 | disposition home or self-care (01) | DRG 419 ==
LOC: ER 10:30 → ERHOLD 19:41 → 4TH 20:34
PROVIDERS: ADMIT Surgery; ATTEND Surgery
PROC: 0FT44ZZ Resection of Gallbladder, Percutaneous Endoscopic Approach (ICD-10-PCS; principal; 2020-08-05 11:45)
DX: K80.00 Calculus of gallbladder with acute cholecystitis without obstruction (principal); F17.210 Nicotine dependence, cigarettes, uncomplicated; Z20.822 Contact with and (suspected) exposure to COVID-19
CPT/HCPCS: 36415; 74177; 74181; 76705; 80048; 80076; 80307; 81003; 82565; 83690; 83735; 85025; 88304; 94010; 96361; 96365; 96366; 96375; 99285; J0696; J1170; J2250; J2405; J2543; J2550; J2704; J2710; J3010; J7030; J7040; J7120; Q9967; U0003